=== PATIENT | female | born 1975 | race Asian ===

== ENCOUNTER → 2016-07-21 | Outpatient (CLI) | payer OTHER ==
[~2016-07-21] MED LIST: ACET-1256 PO; AMOX500C3 PO; CEPH500C PO
== END | disposition home or self-care (01) ==
LOC: C.PAPS 09:47
PROVIDERS: ATTEND Physician Assistant
DX: Z12.4 Encounter for screening for malignant neoplasm of cervix (principal)

== ENCOUNTER 2016-09-04 19:15 | Emergency (ER) | payer OTHER ==
[~2016-09-04] VITALS: Ht 161.3 cm; Wt 70.5 kg
[2016-09-04 19:19] VITALS: Ht 161.3 cm; Wt 70.5 kg
[2016-09-04] MEDS ORDERED: ACET-1256 PO (19:30)
[2016-09-04] MEDS ORDERED: AMOX500C3 PO (19:30)
[2016-09-04] MEDS ORDERED: SODIUM CHLORIDE 0.9% 1000ML 1,000 ML IV STA (19:41)
[2016-09-04] MEDS ORDERED: ACETAMINOPHEN 500 MG TAB PO STA (19:41)
[2016-09-04] MEDS ORDERED: ALBUTEROL 0.5% NEB SOLN 2.5 MG/0.5 ML VIAL INH STA (19:47)
--- NOTE | 2016-09-04 19:47 | EMERGENCY ROOM VISIT NOTE ---
History Report prepared by Clara: Ladarius Napier Under the Supervision of: Dr. Arsalan Conn M.D. First contact with patient: 19:27 Chief Complaint: FEVER Stated Complaint: FEVER,COUGH,CHILLS,BODY ACHES History of Present Illness The patient is a 41 year old female who presents to the Emergency Room with complaints of a fever that began yesterday. She states her fever is between 101- 103 F. She has been taking Tylenol to lessen her fever, but it still persists today. She is also on her second day of Amoxicillin. She is also experiencing rhinorrhea, cough with mild sputum, body aches, sore throat, and mild weakness. She does not take any medications regularly or have any medical problems. The last time she took Tylenol was 6 hours ago. She denies any chest pain, shortness of breath, abdominal pain, diarrhea, numbness, or abnormal urinary symptoms. She denies any recent travel, drinking outside water sources, ticks, and rashes. Her last known menstrual period was August 07, so she states that she could be . 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 She does not feel currently like she did when she experienced this condition. Source of History: patient Onset: yesterday Position: other (Global) Symptom Intensity: 101-103 F Quality: other (Fever) Timing: waxes/wanes Associated Symptoms: + sorethroat, + cough, + weakness, No chest pain, No SOB, No abdominal pain, No diarrhea, No urinary symptoms, No numbness, No rash Review of Systems See HPI for pertinent positives & negatives. A total of 10 systems reviewed and were otherwise negative. Past Medical & Surgical Medical Problems: (1) Guillain Leiva syndrome Family History Patient reports no known family medical history. Social History Smoking Status: Never Smoker Smokeless Tobacco Use: No Drug Use: none Marital Status: Housing Status: lives with family Occupation Status: employed Current/Historical Medications Scheduled Amoxicillin (Amoxil), 500 MG PO BID Cephalexin Monohydrate (Keflex), 1 CAP PO QID Scheduled PRN Acetaminophen (Tylenol), 500 MG PO Q6 PRN for Pain or Fever Allergies Coded Allergies: No Known Allergies (Unverified , 09/04/16) Physical Exam Vital Signs Date Time Temp Pulse Resp B/P (MAP) Pulse Ox O2 Delivery O2 Flow Rate FiO2 09/04/16 23:10 88 18 115/62 97 09/04/16 21:44 38.6 99 20 116/61 99 Room Air 09/04/16 21:44 38.6 99 20 116/61 99 Room Air 09/04/16 20:37 90 09/04/16 20:27 97 Room Air 09/04/16 19:19 39.4 94 20 125/84 100 Room Air Physical Exam GENERAL: Patient is a healthy-appearing well-nourished female HEAD: Normocephalic atraumatic EYES: Ocular movements intact pupils equal and react to light OROPHARYNX mucous membranes are moist no exudates present no erythema or edema present NECK: Supple no nuchal rigidity. No evidence of meningitis or encephalitis on exam. CHEST: Good equal expansion LUNGS: Slight wheezes at bases bilaterally. CARDIAC: Normal S1 and S2 ABDOMEN: Soft nontender no guarding BACK: No CVA tenderness EXTREMITIES: No pain upon palpation normal muscle strength in all groups no clubbing cyanosis or edema NEURO: Patient is following commands and answering questions appropriately. Alert and oriented x3 Cranial Nerves 2-12 grossly intact Medical Decision & Procedures ER Provider Diagnostic Interpretation: Radiology results as stated below per my review and radiologist interpretation: SINGLE VIEW CHEST CLINICAL HISTORY: Wheezing. Fever, cough, chills, and bodyaches. FINDINGS: An AP, portable, upright chest radiograph is obtained. No prior studies are available for comparison at the time of dictation. The examination is degraded by portable technique and patient rotation. The cardiomediastinal silhouette is unremarkable. The lungs and pleural spaces are clear. No pneumothorax is seen. The bony thorax is grossly intact. IMPRESSION: No acute cardiopulmonary abnormality. Electronically signed by: Jasvir Bell M.D. 09/04/2016 9:04 PM Dictated Date/Time: 09/04/2016 9:04 PM Laboratory Results 09/04/16 20:05 Red Blood Count 4.74, Mean Corpuscular Volume 82.3, Mean Corpuscular Hemoglobin 28.1, Mean Corpuscular Hemoglobin Concent 34.1, Mean Platelet Volume 9.9, Neutrophils (%) (Auto) 87.6, Lymphocytes (%) (Auto) 7.4, Monocytes (%) (Auto) 4.4, Eosinophils (%) (Auto) 0.0, Basophils (%) (Auto) 0.2, Neutrophils # (Auto) 4.41, Lymphocytes # (Auto) 0.37, Monocytes # (Auto) 0.22, Eosinophils # (Auto) 0.00, Basophils # (Auto) 0.01 09/04/16 20:05 Test 09/04/16 20:05 09/04/16 20:25 White Blood Count 5.03 K/uL (4.8-10.8) Red Blood Count 4.74 M/uL (4.2-5.4) Hemoglobin 13.3 g/dL (12.0-16.0) Hematocrit 39.0 % (37-47) Mean Corpuscular Volume 82.3 fL (80-100) Mean Corpuscular Hemoglobin 28.1 pg (25-34) Mean Corpuscular Hemoglobin Concent 34.1 g/dl (32-36) Platelet Count 179 K/uL (130-400) Mean Platelet Volume 9.9 fL (7.4-10.4) Neutrophils (%) (Auto) 87.6 % Lymphocytes (%) (Auto) 7.4 % Monocytes (%) (Auto) 4.4 % Eosinophils (%) (Auto) 0.0 % Basophils (%) (Auto) 0.2 % Neutrophils # (Auto) 4.41 K/uL (1.4-6.5) Lymphocytes # (Auto) 0.37 K/uL (1.2-3.4) Monocytes # (Auto) 0.22 K/uL (0.11-0.59) Eosinophils # (Auto) 0.00 K/uL (0-0.5) Basophils # (Auto) 0.01 K/uL (0-0.2) RDW Standard Deviation 42.9 fL (36.4-46.3) RDW Coefficient of Variation 14.1 % (11.5-14.5) Immature Granulocyte % (Auto) 0.4 % Immature Granulocyte # (Auto) 0.02 K/uL (0.00-0.02) Anion Gap 9.0 mmol/L (3-11) Est Creatinine Clear Calc Drug Dose 71.9 ml/min Estimated GFR () 82.2 Estimated GFR (Non- 70.9 BUN/Creatinine Ratio 9.7 (10-20) Calcium Level 9.1 mg/dl (8.5-10.1) Total Bilirubin 0.7 mg/dl (0.2-1) Direct Bilirubin 0.2 mg/dl (0-0.2) Aspartate Amino Transf (AST/SGOT) 81 U/L (15-37) Alanine Aminotransferase (ALT/SGPT) 98 U/L (12-78) Alkaline Phosphatase 85 U/L (45-117) Total Protein 8.0 gm/dl (6.4-8.2) Albumin 3.7 gm/dl (3.4-5.0) Human Chorionic Gonadotropin, Qual NEG (NEG) Lyme Disease IgG Antibody NEG (NEG) Lyme Disease IgM Antibody NEG (NEG) Monoscreen NEG (NEG) Urine Color DK YELLOW Urine Appearance CLOUDY (CLEAR) Urine pH 5.5 (4.5-7.5) Urine Specific [place] 1.033 (1.000-1.030) Urine Protein 2+ (NEG) Urine Glucose (UA) NEG (NEG) Urine Ketones TRACE (NEG) Urine Occult Blood 2+ (NEG) Urine Nitrite NEG (NEG) Urine Bilirubin NEG (NEG) Urine Urobilinogen NEG (NEG) Urine Leukocyte Esterase TRACE (NEG) Urine WBC (Auto) 5-10 /hpf (0-5) Urine RBC (Auto) 5-10 /hpf (0-4) Urine Hyaline Casts (Auto) /lpf (0-5) Urine Epithelial Cells (Auto) >30 /lpf (0-5) Urine Bacteria (Auto) 1+ (NEG) Urine Renal Epithelial Cells /lpf (0-5) Urine Pathogenic Casts /lpf (0) Urine Mucus PRESENT (NONE PRSENT) Urine Test NEG (NEG) Influenza Type A (RT-PCR) Neg for Influ A (NEG) Influenza Type A Antigen Neg for Influ A (NEG) Influenza Type B Antigen Neg for Influ B (NEG) Influenza Type B (RT-PCR) Neg for Influ B (NEG) Labs reviewed by ED physician. Medications Administered Medications (Trade) Dose Ordered Sig/Jessica Route Start Time Stop Time Status Last Admin Dose Admin Sodium Chloride 1,000 ml @ 999 mls/hr Q1H1M STAT IV 09/04/16 19:41 09/04/16 20:41 DC 09/04/16 20:42 999 MLS/HR Acetaminophen (Tylenol Tab) 1,000 mg NOW STAT PO 6/24/17 19:41 09/04/16 19:45 DC 09/04/16 20:42 1,000 MG Albuterol Sulfate (Ventolin 0.5% 2.5MG/0.5ML Neb) 2.5 mg NOW STAT INH 09/04/16 19:47 09/04/16 19:48 DC 09/04/16 20:42 2.5 MG Ketorolac Tromethamine (Toradol Inj) 30 mg NOW STAT IV 09/04/16 21:27 09/04/16 21:28 DC 09/04/16 21:51 30 MG Ceftriaxone Sodium (Rocephin Inj) 1 gm NOW STAT IV 09/04/16 22:33 09/04/16 22:35 DC 09/04/16 22:45 1 GM ED Course 1926: Past medical records reviewed. The patient was evaluated in room B9. A complete history and physical examination was performed. 1940: Ordered Tylenol Tab 1000 mg PO, Sodium Chloride 1000 ml @ 999 mls/hr IV 1946: Ordered Albuterol Sulfate 2.5 mg INH 2126: Ordered Toradol Inj 30 mg IV 0: Upon reexamination the patient is resting. I discussed results and treatment plan with the patient. She verbalizes agreement and understanding. The patient is ready for discharge. Medical Decision Differential diagnosis: Etiologies such as viral syndrome, otitis, pharyngitis, pneumonia, influenza, meningitis, urinary tract infection, sepsis, bacteremia, as well as others were entertained. Medication Reconciliation: I attest that I have personally reviewed the patient' s current medication list Blood Pressure Screening: Patient was found to have normal blood pressure on screening and does not require follow up. This is a 41-year-old female who presents emergency department complaining of fever along with muscle aches. The patient does not have any evidence of meningitis encephalitis on examination. An IV was established, patient given normal saline bolus. I will note that the patient does not have an elevation in her white blood count cell count and in addition has a negative flu negative Lyme. Ehrlichia blood cultures are still pending. The patient denies any urinary symptoms however has a large amount of blood in her urine and for this reason the patient was started on Rocephin. I will continue her on Keflex at home. Patient and family were in agreement with the treatment plan. Impression Primary Impression: Fever Scribe Attestation The scribe's documentation has been prepared under my direction and personally reviewed by me in its entirety. I confirm that the note above accurately reflects all work, treatment, procedures, and medical decision making performed by me. Departure Information Dispostion Home / Self-Care Prescriptions Cephalexin Monohydrate (Keflex) 500 Mg Cap 1 CAP PO QID for 10 Days, #40 CAP Prov: Arsalan Conn MD 09/04/16 Referrals Milvia Gutierrez D.O. (PCP) Forms HOME CARE DOCUMENTATION FORM, IMPORTANT VISIT INFORMATION Patient Instructions My [facility] Problem Qualifiers Primary Impression: Fever Fever type: unspecified Qualified Codes: R50.9 - Fever, unspecified
[2016-09-04 20:27] VITALS: O2SAT 97
[2016-09-04 20:27] LABS: BASO % 0.2 %; BASO ABS # 0.01 K/uL (0-0.2); COMPLETE YES; IG% 0.4 %; LYMPH % 7.4 %; LYMPH ABS # 0.37 K/uL (1.2-3.4); MEAN CELL VOLUME 82.3 fL (80-100); MEAN CORPUSCULAR HEMOGLOBIN 28.1 pg (25-34); MEAN CORPUSCULAR HGB CONC 34.1 g/dl (32-36); MEAN PLATELET VOLUME 9.9 fL (7.4-10.4); MONO % 4.4 %; NEUT % 87.6 %; PLATELET COUNT 179 K/uL (130-400); RED BLOOD COUNT 4.74 M/uL (4.2-5.4); WHITE BLOOD COUNT 5.03 K/uL (4.8-10.8)
[2016-09-04 20:45] LABS: BUN/CREATININE RATIO 9.7 (10-20); POTASSIUM 3.6 mmol/L (3.5-5.1)
[2016-09-04 20:52] LABS: URINE APPEARANCE CLOUDY (CLEAR); URINE COLOR DK YELLOW; URINE EPITHELIAL CELL AUTO >30 /lpf (0-5); URINE NITRITE NEG (NEG); URINE PH 5.5 (4.5-7.5); URINE SPECIFIC GRAVITY 1.033 (1.000-1.030); UROBILINOGEN NEG (NEG)
--- NOTE | 2016-09-04 21:05 | DIAGNOSTIC IMAGING REPORT ---
SINGLE VIEW CHEST CLINICAL HISTORY: Wheezing. Fever, cough, chills, and bodyaches. FINDINGS: An AP, portable, upright chest radiograph is obtained. No prior studies are available for comparison at the time of dictation. The examination is degraded by portable technique and patient rotation. The cardiomediastinal silhouette is unremarkable. The lungs and pleural spaces are clear. No pneumothorax is seen. The bony thorax is grossly intact. IMPRESSION: No acute cardiopulmonary abnormality. Electronically signed by: Jasvir Bell M.D. 09/04/2016 9:04 PM Dictated Date/Time: 09/04/2016 9:04 PM
[2016-09-04 21:22] LABS: CALCIUM 9.1 mg/dl (8.5-10.1)
[2016-09-04 21:26] LABS: REVIEW REQ? YES; URINE BILIRUBIN NEG (NEG)
[2016-09-04] MEDS ORDERED: KETOROLAC TROMETHAMINE 30 MG/ML VIAL IV STA (21:27)
[2016-09-04 21:28] LABS: URINE MUCUS PRESENT (NONE PRSENT)
[2016-09-04 21:29] LABS: ZZUR CULT IF INDIC CLEAN CATCH YES
[2016-09-04 21:30] LABS: MANUAL MICROSCOPIC REQUIRED? NO
[2016-09-04 21:44] VITALS: TEMP 38.6
[2016-09-04 21:49] LABS: LYME DISEASE AB IGG NEG (NEG); LYME DISEASE AB IGM NEG (NEG)
[2016-09-04] MEDS ORDERED: CEFTRIAXONE SOD INJ 1 GM ADDVIAL IV STA (22:33)
[2016-09-04] MEDS ORDERED: CEPH500C PO (22:38)
[2016-09-04 22:58] LABS: INFLUENZA A PCR Neg for Influ A (NEG); INFLUENZA B PCR Neg for Influ B (NEG)
[2016-09-04 23:00] LABS: PREG INTERNAL NEGATIVE QC NEG CLEAR BACKGROUND; PREG INTERNAL POSITIVE QC POS CONTROL LINE
[2016-09-04 23:10] VITALS: BP 115/62; PULSE 88; O2SAT 97
[2016-09-09 15:49] LABS: EBV EARLY ANTIGEN AB <9.00 U/ML
[2016-09-11 23:34] LABS: EHRLICHIA CHAFF IGG AB <1:64 (<1:64); EHRLICHIA CHAFF IGM AB <1:20 (<1:20)
== END 2016-09-04 23:12 | disposition home or self-care (01) ==
LOC: C.EDB 19:16
DX: R50.9 Fever, unspecified (principal); G61.0 Guillain-Barre syndrome